=== PATIENT | female | born 1980 | race Caucasian/White ===

== ENCOUNTER → 2018-03-15 | Outpatient (CLI) | payer BC ==
[2016-01-06 12:11] VITALS: BP 137/79
[~2018-03-15] MED LIST: ACET325C5 PO; BENZ200C47 PO; BUSP10TA PO; CETI10TA22 PO; DILT120C80 PO; DOXY100C2 PO; FLUT1DIS3 IH; GUAI120L35 PO; HYDR-2758 PO; HYDR12.58 PO; HYDR200T71 PO; IBUP200T77 PO; NAPR220C4 PO; PRED-220 PO; PROAIR HFA8.5 GM INH; SERT100T PO; TOPI25TA52 PO; TRAZ-85 PO; VALA500T5 PO
--- NOTE | 2018-03-15 15:37 | EKG ---
[facility] [address] [place] [address] Test Date: 2018-03-15 Test Time: 14:44:28 Pat Name: NANI PERKINS Department: Room: Gender: F On [employer] Personality: JORJE : 1980 Requested By: RONIT SOSA Order Number: [id number] Reading MD: Trace Caicedo MD Measurements Intervals [place] Rate: 78 P: 52 DC: 128 QRS: 34 QRSD: 76 T: 19 QT: 378 QTc: 434 Interpretive Statements SINUS RHYTHM Electronically Signed On 03-20-2018 8:23:07 CDT by Trace Caicedo MD
[2018-03-15 15:40] LABS: BASO # 0.1 x10^3/uL (0.0-0.2); BASO % 1 % (0-3); EOS # 0.2 x10^3/uL (0.0-0.7); EOS % 2 % (0-3); HEMOGLOBIN 12.3 g/dL (12.0-15.5); LYMPH # 1.7 x10^3/uL (1.0-4.8); LYMPH % 16 % (24-48); MEAN CORPUSCULAR HEMOGLOBIN 25 pg (25-35); MEAN CORPUSCULAR HGB CONC 33 g/dL (31-37); MEAN CORPUSCULAR VOLUME 74 fL (79-100); MONO # 0.7 x10^3/uL (0.0-1.1); MONO % 7 % (0-9); NEUT % 75 % (31-73); PLATELET COUNT 333 x10^3/uL (140-400); RED BLOOD COUNT 5.04 x10^6/uL (3.50-5.40); WHITE BLOOD COUNT 10.7 x10^3/uL (4.0-11.0)
[2018-03-15 15:43] LABS: BILIRUBIN,URINE NEGATIVE (NEG); CLARITY,URINE CLEAR; COLOR,URINE YELLOW; NITRITE,URINE NEGATIVE (NEG); PROTEIN,URINE NEGATIVE (NEG-TRACE); UROBILINOGEN,URINE 0.2 mg/dL (0.2 mg/dL)
[2018-03-15 15:51] LABS: BACTERIA,URINE 0 /HPF (0-FEW); RBC,URINE TNTC /HPF (0-2); SQUAMOUS EPITHELIAL CELL,UR MOD /LPF; WBC,URINE 0 /HPF (0-4)
[2018-03-15 15:52] LABS: HYALINE CASTS, URINE OCCASIONAL /HPF
[2018-03-15 16:11] LABS: ALBUMIN 3.8 g/dL (3.4-5.0); ALBUMIN/GLOBULIN RATIO 0.9 (1.0-1.7); CALCIUM 9.3 mg/dL (8.5-10.1); GFR 62.4; POTASSIUM 3.4 mmol/L (3.5-5.1); TOTAL BILIRUBIN 0.3 mg/dL (0.2-1.0); TOTAL PROTEIN 8.2 g/dL (6.4-8.2)
--- NOTE | 2018-03-15 16:19 | RAD ---
AP and Lateral Views of the Chest 03/15/2018 3:02 PM Indication: PRE-OP CHEST, HYSTERECTOMY Comparison: Chest radiograph January 03, 2016 Findings: There is no focal consolidation or infiltrate identified. The cardiomediastinal silhouette is within normal limits. There is no evidence of pneumothorax or pleural effusion. No acute osseous abnormalities are identified. Impression: No evidence of acute cardiopulmonary process. Electronically signed by: Joshua Valentine MD (03/15/2018 4:16 PM) [facility]
== END | disposition home or self-care (01) ==
LOC: SURGPAT 14:52
PROVIDERS: ATTEND Obstetrics & Gynecology
DX: Z01.818 Encounter for other preprocedural examination (principal); I10 Essential (primary) hypertension; Z90.710 Acquired absence of both cervix and uterus
CPT/HCPCS: 36415; 71046; 80053; 81001; 85025; 93005

== ENCOUNTER 2018-03-22 06:01 | Observation (INO) | payer BC ==
[2018-03-22] VITALS (12 sets, daily range): BP systolic 90–105; BP diastolic 55–70
[~2018-03-22] VITALS: Ht 165.1 cm; Wt 93.4 kg
[~2018-03-22 06:01] MED LIST changes: -HYDR-2758 PO
[2018-03-22] MEDS ORDERED: ESTROGENS, CONJ VAGINAL CREAM 30GM TUBE. ONE (06:12)
[2018-03-22] MEDS ORDERED: BUPIVAC MPF-EPI 0.5%-1:200000 30 ML VIAL. ONE (06:12)
[2018-03-22] MEDS ORDERED: METHYLENE BLUE 1% 10 ML VIAL. ONE (06:12)
[2018-03-22] MEDS: IV RINGERS,LACTATED 1000ML 1,000 ML IV SCH ×2 (06:45→09:34)
[2018-03-22 06:55] LABS: U PREG PATIENT NEGATIVE (NEG)
[2018-03-22] MEDS ORDERED: fentaNYL PF VIAL 100 MCG/2 ML VIAL IV PRN ×2 (07:00)
[2018-03-22] MEDS ORDERED: ONDANSETRON PF 4 MG/2 ML VIAL. IV PRN ×2 (07:00→09:30)
[2018-03-22] MEDS ORDERED: LIDOCAINE 1% PF 2 ML VIAL. ID PRN (07:00)
[2018-03-22] MEDS ORDERED: SUCCINYLCHOLINE 200 MG/10 ML VIAL. ONE (07:03)
[2018-03-22] MEDS ORDERED: ROCURONIUM 50 MG/5 ML VIAL. ONE (07:03)
[2018-03-22] MEDS ORDERED: NEOSTIGMINE METHYLSULFATE 5 MG/5 ML SYRINGE. ONE (07:04)
[2018-03-22] MEDS ORDERED: MIDAZOLAM HCL/PF 2 MG/2 ML VIAL. ONE (07:04)
[2018-03-22] MEDS ORDERED: GLYCOPYRROLATE 1 MG/5 ML VIAL. ONE (07:04)
[2018-03-22] MEDS ORDERED: ONDANSETRON PF 4 MG/2 ML VIAL. ONE (07:05)
[2018-03-22] MEDS ORDERED: DEXAMETHASONE SOD PHOS 20 MG/5 ML VIAL. ONE (07:05)
[2018-03-22] MEDS ORDERED: KETOROLAC 30 MG/ML INJ FOR OR. INJ ONE (07:05)
[2018-03-22] MEDS ORDERED: LIDOCAINE 2% PF Vial for OR 5 ML VIAL. ONE (07:05)
[2018-03-22] MEDS ORDERED: PROPOFOL 20 ML IV ONE (07:05)
[2018-03-22] MEDS ORDERED: SCOPOLAMINE 1.5MG PATCH. TD ONE (07:30)
[2018-03-22] MEDS ORDERED: SEVOFLURANE > 120 MINUTES. IH ONE (07:50)
[2018-03-22] MEDS ORDERED: DESFLURANE 61 TO 120 MINUTES IH ONE (07:50)
--- NOTE | 2018-03-22 09:20 | PDOC ---
BRIEF OPERATIVE NOTE Date: Mar 22, 2018 Pre-Op Diagnosis menorrhagia, enlarged fibroid uterus Post-Op Diagnosis same Procedure Performed LAVH/bilateral salpingectomy Surgeon Dr. Sveta John Skilled Laborer Beth Pickard, SAMANTHA FA Anesthesiologist Dr. Cerda Anesthesia Type: General Blood Loss 100cc IV Fluid 800cc Urine Output 150cc clear via cardenas Specimens Obtained cervix, uterus, bilateral tubes Findings enlarged fibroid uterus with evidence of bilateral fallop rings Complications none Operative Note [id number] SVETA JOHN MD Mar 22, 2018 09:20
[2018-03-22] MEDS ORDERED: 0.9 % SODIUM CHLORIDE 10 ML DISP.SYRIN. IV PRN (09:30)
[2018-03-22] MEDS ORDERED: CALCIUM CARBONATE 500 MG TAB.CHEW PO PRN (09:30)
[2018-03-22] MEDS ORDERED: LACTULOSE 20 GM/30 ML SOLUTION. PO PRN (09:30)
[2018-03-22] MEDS ORDERED: ZOLPIDEM 5 MG TABLET. PO PRN (09:30)
[2018-03-22] MEDS ORDERED: MAG HYDROX/ALUMINUM HYD/SIMETH 30 ML ORAL.SUSP PO PRN (09:30)
[2018-03-22] MEDS ORDERED: HYDROcodone/APAP 5/325MG 1 TAB TABLET PO PRN (09:30)
[2018-03-22] MEDS ORDERED: KETOROLAC 30 MG/ML VIAL. IV PRN (09:30)
[2018-03-22] MEDS ORDERED: SIMETHICONE 80 MG TAB.CHEW PO PRN (09:30)
[2018-03-22] MEDS ORDERED: diphenhydrAMINE 50 MG/ML VIAL IV PRN (09:30)
[2018-03-22] MEDS ORDERED: diphenhydrAMINE HCL 25 MG CAPSULE PO PRN (09:30)
[2018-03-22] MEDS ORDERED: oxyCODONE/APAP 5/325 1 TAB TABLET PO PRN (09:30)
[2018-03-22] MEDS ORDERED: MORPHINE SULFATE 2 MG/ML VIAL. IV PRN (09:30)
[2018-03-22] MEDS ORDERED: NALOXONE 0.4 MG/ML VIAL. IV PRN (09:30)
[2018-03-22] MEDS ORDERED: MAGNESIUM HYDROXIDE 2,400 MG/30 ML ORAL.SUSP. PO PRN (09:30)
[2018-03-22] MEDS: PROCHLORPERAZINE 10 MG/2 ML VIAL. IV PRN ×2 (09:33→09:49)
[2018-03-22] MEDS: MORPHINE SULFATE 2 MG/ML VIAL. IV PRN ×2 (09:33→09:49)
[2018-03-22] MEDS: HYDROmorphone 2 MG/ML VIAL IV PRN (09:48)
--- NOTE | 2018-03-22 11:31 | OP ---
DATE OF SURGERY: 03/22/2018 PREOPERATIVE DIAGNOSES: Menorrhagia and enlarged fibroid uterus. POSTOPERATIVE DIAGNOSES: Menorrhagia and enlarged fibroid uterus. PROCEDURE: Laparoscopic-assisted vaginal hysterectomy, bilateral salpingectomy. SURGEON: Ronit John MD. INTEGRATION AIDE: Beth Heredia. ANESTHESIOLOGIST: Dr. Cerda. ANESTHESIA: General. ESTIMATED BLOOD LOSS: 100 mL. URINE OUTPUT: 150 mL, clear via Duff catheter. INTRAVENOUS FLUIDS: 800 mL of Crystalloid. SPECIMENS: Cervix, uterus, bilateral tubes. FINDINGS: Enlarged fibroid uterus with evidence of bilateral previous tubal ligation with occlusion with Falope rings. No significant pelvic adhesive disease. COMPLICATIONS: None. DESCRIPTION OF PROCEDURE: This patient was taken to the operating room where general anesthesia was placed. She was placed in a dorsal lithotomy position in [facility]. The patient's abdomen and vagina were prepped and draped in the normal sterile fashion and a Duff catheter had been inserted under sterile technique. Upon my arrival, a timeout was performed once everyone agreed and she had received her preoperative antibiotics already and catheter was in place. A bivalve speculum was placed in the patient's vagina. A single tooth tenaculum was used to grasp the anterior lip of the cervix. A 10 mL of 0.5% Marcaine with epinephrine, they were out of 0.25 was used to circumferentially inject around the cervix for both hemodissection and hemostatic purposes later. The Valtchev uterine manipulator was placed through the endocervical os, locked on the single tooth tenaculum and the bivalve speculum was then removed. Top gloves were discarded and changed. Attention was then turned to the abdomen where a small infraumbilical skin incision was made with the scalpel. A curved Sherine was used to dissect through the subcuticular layer to the fascia. The 5-mm Visiport was used directly into the abdominal cavity. Opening patient pressure was 4 mmHg. Carbon dioxide gas was used to then appropriately insufflate the abdominal cavity to maintain a pressure of 15 mmHg. The patient was placed in Trendelenburg position. Right and left lower quadrant ports were placed under direct visualization after transilluminating the abdomen finding an area clear of any vasculature making a small incision and placing a 5-mm atraumatic port and under direct visualization. The 2 mL of air was used to insufflate the cuff on the balloons. I then did move the camera, make sure the umbilical port was okay and inflated that one as well. Once that was all done, the [place] was used to elevate the left tube and ovary. The ovary looked normal. She wished to retain it that she is only 38, so going above the ovary below the tube, doing a salpingectomy with the LigaSure, this is on the left crossing the left round ligament and then the left uterine ovarian pedicle. The same thing was done on the right, elevating the right tube and ovary. It was normal going above the ovary, below the tube, doing a salpingectomy, crossing the right round ligament and then crossing the right uterine ovarian pedicle as well. Once I crossed the right round ligament, I went down and got the bladder flap, got in with the arm of the LigaSure and started to cut it and gently pulled it down sharply and bluntly. Once the bladder was down, the uterine vessels were obtained on both sides with the LigaSure and then going down hugging the cervix and staying right on the cervix through the cardinal and broad ligaments down to the uterosacral ligaments bilaterally. At this point, the uterus was completely blanched. Everything was free. There were no adhesions to the posterior side, so everything was removed. All instruments and attention was turned vaginally. The single tooth and Valtchev were removed. A weighted speculum was placed in the patient's vagina. Thyroid Tatyana clamps were placed on the anterior and posterior lips of the cervix respectively. A scalpel was used to make a circumferential incision in the cervix. An open Ray-Mone was used to gently push up the anterior bladder peritoneum and the anterior cul-de-sac was very easily digitally and bluntly entered. The Ray-Mone was removed and a curved [place] was placed in the anterior cul-de-sac. The cervix was elevated and the posterior cul-de-sac was entered sharply with the Quach scissors. A #0 Vicryl stitch was used to secure the posterior peritoneum here to the vaginal cuff and it was tagged with a curved Sherine clamp and the needle was cut and passed off. The short weighted speculum was removed and replaced with the long weighted vaginal Lisa speculum in the posterior cul-de-sac. At this point, curved Soumya clamps x 2 were placed on the patient's left uterosacral ligament where they were doubly clamped with curved Heaneys, cut with Quach scissors and suture ligated x 2 with 0 Vicryl. The second one was taken through the vaginal cuff securing the uterosacral ligament to the vaginal cuff and tagging that and cutting the needle off and passing it. This was done exactly the same on the right side, double clamping the uterosacrals with curved Soumya's, cutting with Quach scissors, suture ligating x 2 with #0 Vicryl and again taking the second one through the vaginal cuff securing uterosacral ligament to the vaginal cuff, tagging it and cutting and passing the needle off. At this point, the right angle clamp was used not to clamp but to pass through the remaining pedicle and the vaginal LigaSure was used to cauterize and cut the remaining pedicles on both sides. Once it was free, the cervix, uterus and bilateral tubes were delivered in toto and passed off for permanent pathology. A sponge stick was used to examine the pedicles, they were hemostatic. There was a little clot that was cleared out from the right side. Once this was done, the bleeding was scant. The anterior bladder peritoneum was grasped with a long Allis and the long weighted speculum was removed and replaced with a short weighted vaginal speculum. 2-0 Vicryl was taken through the anterior bladder peritoneum, left uterosacral ligament, posterior peritoneum and right uterosacral ligament, thus closing the peritoneum in a pursestring like fashion. Once this was done, the right and left uterosacral tags were clipped as well. A full length 2-0 Vicryl was used to close the cuff in an anterior to posterior running locked fashion and it was tied to that posterior cuff tag. Once this was done, a sponge stick was used to examine the pedicle or the vaginal cuff and it was hemostatic. Once this was assured, all instruments were removed from the vagina. All initials sponge, lap and needle counts were correct x 2. All gloves were discarded and changed. At this point, a second look was taken from above. The gas was reinsufflated. She was placed back in Trendelenburg. Copious irrigation revealed hemostasis. Any clots that were in there were irrigated and suctioned out. There was no active bleeding. Tisseel was placed over the cuff. The ovaries looked good. The 2 mL syringe was used to deflate all 3 trocars and this was looked at with the scope. I even moved the camera to look at the middle one. Once this was done, the right and left lower quadrants ports were removed under direct visualization. Gas was released from the umbilical port. All three port sites were closed with 4-0 nylon at the skin and the patient is currently being awakened from anesthesia. The patient tolerated the procedure well. All sponge, lap and needle counts were correct x 2 by OR personnel. RONIT JOHN MD DR: SOURAV/alexandrea JOB#: [id number] / [id number]
[2018-03-22] MEDS ORDERED: CETIRIZINE HCL 10 MG TABLET. PO SCH (12:00)
[2018-03-22] MEDS ORDERED: hydroCHLOROthiazide 12.5 MG CAPSULE PO SCH (12:00)
[2018-03-22] MEDS ORDERED: busPIRone 10 MG TABLET. PO SCH (12:00)
[2018-03-22] MEDS ORDERED: traZODone 50 MG TABLET. PO SCH (21:00)
[2018-03-23 00:01] VITALS: BP 83/49
[2018-03-23 06:35] VITALS: BP 96/63
[2018-03-23 06:37] LABS: CALCIUM 7.7 mg/dL (8.5-10.1); CREATININE 0.8 mg/dL (0.6-1.0); GFR 80.3; POTASSIUM 3.9 mmol/L (3.5-5.1)
[2018-03-23 08:00] VITALS: BP 97/66
[2018-03-23] MEDS ORDERED: HYDR-2758 PO ×4 (10:50→11:01)
--- NOTE | 2018-03-23 10:58 | PDOC ---
SURGICAL PROGRESS NOTE Subjective Doing well Mild gas is only complaint. Scant Vaginal bleeding, voiding well without catheter, steady on feet, tolerating regular diet without N/v, feels good with minimal pain and +flatus. Wants to go home. Vital Signs Vital Signs Date Time Temp Pulse Resp B/P (MAP) Pulse Ox O2 Delivery O2 Flow Rate FiO2 03/23/18 08:20 Room Air 03/23/18 08:00 98.4 77 18 97/66 (76) 99 98.4 03/22/18 09:50 10 I&O Intake and Output 03/23/18 07:00 Intake Total 3490 ml Output Total 1525 ml Balance 1965 ml Intake Oral 1240 ml IV Total 2250 ml Output Urine Total 1425 ml Estimated Blood Loss 100 ml PATIENT HAS A ADAME: No General: Alert, Oriented X3, Cooperative, No acute distress HEENT: Atraumatic Heart: Regular rate Abdomen: Soft, No tenderness, Other (all port sites c/d/i (umb has dried blood from yesterday but not bleeding and hemostatic)) Extremities: No clubbing, No cyanosis, No edema Skin: No rashes, No breakdown Neuro: Normal speech Psych/Mental Status: Mental status NL, Mood NL Labs Laboratory Tests Test 03/22/18 06:15 03/23/18 04:35 Urine Test Negative (NEG) Hematocrit 26.3 % (36.0-47.0) Sodium Level 143 mmol/L (136-145) Potassium Level 3.9 mmol/L (3.5-5.1) Chloride Level 109 mmol/L (98-107) Carbon Dioxide Level 26 mmol/L (21-32) Anion Gap 8 (6-14) Blood Urea Nitrogen 10 mg/dL (7-20) Creatinine 0.8 mg/dL (0.6-1.0) Estimated GFR (Cockcroft-Gault) 80.3 Glucose Level 94 mg/dL (70-99) Calcium Level 7.7 mg/dL (8.5-10.1) Laboratory Tests Test 03/23/18 04:35 Hematocrit 26.3 % (36.0-47.0) Sodium Level 143 mmol/L (136-145) Potassium Level 3.9 mmol/L (3.5-5.1) Chloride Level 109 mmol/L (98-107) Carbon Dioxide Level 26 mmol/L (21-32) Anion Gap 8 (6-14) Blood Urea Nitrogen 10 mg/dL (7-20) Creatinine 0.8 mg/dL (0.6-1.0) Estimated GFR (Cockcroft-Gault) 80.3 Glucose Level 94 mg/dL (70-99) Calcium Level 7.7 mg/dL (8.5-10.1) I have reviewed the following labs, vitals and nursing Cardiovascular: Other (ho ablation in past) Pulmonary: No pertinent hx Heme/Onc: Anemia NOS Psych: No pertinent hx Assessment/Plan POD #1 s/p LAVH/bilateral salpingectomy Routine PO care d/c to home later today NPV x 6 weeks light/limited activity x 2 weeks already has hydrocodone filled at home--NO driving on narcotic pain pills ok to alternate OTC ibuprofen as needed keep scheduled one week follow up with me in the office call or return sooner for any other questions or concerns not limited to but including pain unrelieved with pain meds, increased or unexplained vaginal bleeding, T>100.4 or any other questions or concerns RONIT SOSA MD Mar 23, 2018 10:58
--- NOTE | 2018-03-23 11:00 | PDOC3 ---
Discharge Summary Visit Information Date of Admission: Mar 22, 2018 Date of Discharge: Mar 23, 2018 Final Diagnosis menorrhagia, enlarged fibroid uterus, anemia Brief Hospital Course Allergies Allergies Coded Allergies Type Severity Reaction Last Updated Verified meperidine Allergy Severe RESP ARREST 03/22/18 Yes Vital Signs Vital Signs Date Time Temp Pulse Resp B/P (MAP) Pulse Ox O2 Delivery O2 Flow Rate FiO2 03/23/18 08:20 Room Air 03/23/18 08:00 98.4 77 18 97/66 (76) 99 98.4 03/22/18 09:50 10 Lab Results Laboratory Tests Test 03/22/18 06:15 03/23/18 04:35 Urine Test Negative (NEG) Hematocrit 26.3 % (36.0-47.0) Sodium Level 143 mmol/L (136-145) Potassium Level 3.9 mmol/L (3.5-5.1) Chloride Level 109 mmol/L (98-107) Carbon Dioxide Level 26 mmol/L (21-32) Anion Gap 8 (6-14) Blood Urea Nitrogen 10 mg/dL (7-20) Creatinine 0.8 mg/dL (0.6-1.0) Estimated GFR (Cockcroft-Gault) 80.3 Glucose Level 94 mg/dL (70-99) Calcium Level 7.7 mg/dL (8.5-10.1) Laboratory Tests Test 03/23/18 04:35 Hematocrit 26.3 % (36.0-47.0) Sodium Level 143 mmol/L (136-145) Potassium Level 3.9 mmol/L (3.5-5.1) Chloride Level 109 mmol/L (98-107) Carbon Dioxide Level 26 mmol/L (21-32) Anion Gap 8 (6-14) Blood Urea Nitrogen 10 mg/dL (7-20) Creatinine 0.8 mg/dL (0.6-1.0) Estimated GFR (Cockcroft-Gault) 80.3 Glucose Level 94 mg/dL (70-99) Calcium Level 7.7 mg/dL (8.5-10.1) Brief Hospital Course Ms. Burton is a 38 old female who presented with enlarged fibroid uterus, menorrhagia to anemia. She underwent and LAVH/bilateral salpingectomy without complications yesterday. She has had an unremarkable postoperative course with no problems with diet, vag bleeding, ambulation and AF VSS. She is desiring to go home today Discharge Information Condition at Discharge: Stable Follow Up: Weeks Disposition/Orders: D/C to Home Scheduled Acetaminophen (Tylenol) 325 Mg Capsule, 1,000 MG PO HS, (Reported) Entered as Reported by: Briana Ca on 03/15/181553 Last Taken: Unknown Dose on 03/19/18 Last Action: HELD on 03/22/18722 by RONIT SOSA Buspirone Hcl (Buspirone Hcl) 10 Mg Tablet, 1 TAB PO DAILY, #60 Ref 1 (Reported) Entered as Reported by: Briana Ca on 03/15/181553 Last Taken: Unknown Dose on 03/21/18 Last Action: Continued on 03/22/18722 by RONIT SOSA Cetirizine Hcl (Zyrtec) 10 Mg Tablet, 1 TAB PO DAILY, #30 Ref 2 (Reported) Entered as Reported by: Briana Ca on 03/15/181553 Last Taken: Unknown Dose on 03/20/18 Last Action: Continued on 03/22/18722 by RONIT SOSA Hydrochlorothiazide (Hydrochlorothiazide Tablet) 12.5 Mg Tablet, 1 TAB PO DAILY , #30 Ref 5 (Reported) Entered as Reported by: Briana Ca on 03/15/181553 Last Taken: Unknown Dose on 03/20/18 Last Action: Converted on 03/22/18722 by RONIT SOSA Hydroxychloroquine Sulfate (Plaquenil) 200 Mg Tablet, 200 MG PO DAILY, (Reported ) Entered as Reported by: Briana Ca on 03/15/181553 Last Taken: Unknown Dose on 03/21/18 Last Action: HELD on 03/22/18722 by RONIT SOSA Sertraline Hcl (Zoloft) 100 Mg Tablet, 150 MG PO DAILY for ANTI-DEPRESSANT, Ref 0 (Reported) Entered as Reported by: Briana Ca on 03/15/181553 Last Taken: Unknown Dose on 03/21/18 Last Action: HELD on 03/22/18722 by RONIT SOSA Topiramate (Topamax) 25 Mg Tablet, 1 TAB PO DAILY, #60 Ref 2 (Reported) Entered as Reported by: Briana Ca on 03/15/181553 Last Taken: Unknown Dose on 03/20/18 Last Action: HELD on 03/22/18722 by RONIT SOSA Trazodone Hcl (Trazodone Hcl) 50 Mg Tablet, 1 TAB PO QHS, #30 Ref 1 (Reported) Entered as Reported by: Briana Mascorro Lanny on 03/15/181553 Last Taken: Unknown Dose on 03/21/18 Last Action: Continued on 03/22/18722 by RONIT SOSA Valacyclovir Hcl (Valtrex) 500 Mg Tablet, 1 TAB PO DAILY, #30 Ref 11 (Reported) Entered as Reported by: Briana Ca on 03/15/181553 Last Taken: Unknown Dose on 03/20/18 Last Action: HELD on 03/22/18722 by RONIT SOSA Scheduled PRN Benzonatate (Benzonatate) 200 Mg Capsule, 200 MG PO TID PRN for COUGH, (Reported ) Entered as Reported by: Flakito Rai on 01/06/161538 Last Action: HELD on 03/22/18722 by RONIT SOSA Hydrocodone Bit/Acetaminophen (Hydrocodone-Apap 5-325 ) 1 Each Tablet, 1 TAB PO PRN Q6HRS PRN for PAIN, Ref 0 (Reported) Entered as Reported by: CALEB BARBER on 03/23/18 1050 Hydrocodone Bit/Acetaminophen (Hydrocodone-Apap 5-325 ) 1 Each Tablet, 1 TAB PO PRN Q6HRS PRN for PAIN, Ref 0 (Reported) Entered as Reported by: CALEB BARBER on 03/23/18 1051 Hydrocodone Bit/Acetaminophen (Hydrocodone-Apap 5-325 ) 1 Each Tablet, 1 TAB PO PRN Q6HRS PRN for PAIN, Ref 0 (Reported) Entered as Reported by: CALEB BARBER on 03/23/18 1053 Patient Instructions Patient Instructions POD #1 s/p LAVH/bilateral salpingectomy Routine PO care d/c to home later today NPV x 6 weeks light/limited activity x 2 weeks already has hydrocodone filled at home--NO driving on narcotic pain pills ok to alternate OTC ibuprofen as needed keep scheduled one week follow up with me in the office call or return sooner for any other questions or concerns not limited to but including pain unrelieved with pain meds, increased or unexplained vaginal bleeding, T>100.4 or any other questions or concerns RONIT SOSA MD Mar 23, 2018 11:00
--- NOTE | 2018-03-24 14:10 | PATHOLOGY ---
[facility] Accession Number: [id number] . 01 Material submitted: . UTERUS AND CERVIX, WITH BILATERAL FALLOPIAN TUBES . 01 Clinical history: . Fibroid. . 02 Diagnosis: Uterus and bilateral fallopian tubes, laparoscopic-assisted vaginal hysterectomy with bilateral salpingectomy: - Adenomyosis, uterine corpus, with myometrial hypertrophy (uterine weight 196 grams). - Leiomyomas (3), subserosal and intramural, the largest measuring 1.0 cm. - Chronic cervicitis with squamous metaplasia. - Proliferative endometrium. - Congestion of bilateral fallopian tubes. - Left paratubal cyst. (JPM:devendra; 03/24/2018) QMS/03/24/2018 . 02 Comment: There is no atypia or evidence of malignancy. . 02 Electronically signed: . Byron Rouse MD, Pathologist NPI- [id number] . 01 Gross description: . Received in formalin labeled "Jayleen Burton, uterus and cervix, bilateral fallopian tubes" is a hysterectomy specimen consisting of a uterus with attached fallopian tubes. The uterus weighs 196 g and measures 12.3 cm from fundus to cervix, 7.7 cm from cornu to cornu, and 6.6 cm from anterior to posterior. The serosa is pink guillen and smooth with two subserosal leiomyomata which measure 1.0 and 0.8 cm in greatest dimension. The cervical os is slitlike and measures 1.3 cm, and the ectocervix is pink-guillen and glistening. The cervix is probed patent and the uterus is opened to reveal a 4.5 x 2.8 cm endometrial cavity and a 3.0 x 0.6 cm endocervical canal. The average endometrial thickness measures 0.2 cm and the average myometrial thickness measures 2.8-3.5 cm. The uterus is serially sectioned to reveal a guillen-pink trabeculated myometrium, with one additional leiomyoma measuring 0.5 cm in greatest dimension. Upon sectioning the leiomyomata, no hemorrhage or necrosis is identified. The right fimbriated fallopian tube measures 4.8 cm in length and 0.8 cm in diameter. The left fimbriated fallopian tube measures 5.6 cm in length and 1.0 cm in diameter. The serosal surfaces are pink guillen and smooth and the fallopian tubes are serially sectioned to reveal pinpoint lumens. The left fallopian tube has a 0.8 cm paratubal cyst, which contains clear watery fluid. . Environmental Health Officer sections are submitted as follows: A1 12:00 cervix A2 6:00 cervix A3 anterior endomyometrium A4 posterior endomyometrium A5 sales representative door to door right fallopian tube A6 sales representative door to door left fallopian tube A7 sales representative door to door leiomyomata ([facility]; 03/22/2018) SYC/SYC . 02 Pathologist provided ICD-10: D25.1, N72, N80.0, N83.8 . 02 CPT . 382940 Specimen Comment: A courtesy copy of this report has been sent to Specimen Comment: [phone], . Specimen Comment: Report sent to / DR MCKEON Specimen Comment: A duplicate report has been generated due to demographic updates. Performed at: 01 [facility] [address] [facility] [address], [place] [id number] MD Jeet Bolanos MD Phone: [phone] Performed at: 02 [facility] [address] [place], [place] [id number] MD Byron Rouse MD Phone: [phone]
== END 2018-03-23 11:20 | disposition home or self-care (01) ==
LOC: SURG 06:01 → 3 NORTH 09:21
PROVIDERS: ADMIT Obstetrics & Gynecology; ATTEND Obstetrics & Gynecology
DX: D25.9 Leiomyoma of uterus, unspecified (principal); D64.9 Anemia, unspecified; N92.0 Excessive and frequent menstruation with regular cycle; Z98.51 Tubal ligation status
CPT/HCPCS: 36415; 58552; 80048; 81025; 85014; 86850; 86900; 86901; A7015; G0378; G0379; J0330; J0690; J0780; J1100; J1885; J2001; J2250; J2270; J2704; J2710; J3010; J3490; J7030; J7120; 88307; J1170; J2405; Q9968